=== PATIENT | female | born 1990 | race Caucasian/White ===

== ENCOUNTER 2021-03-15 11:22 | Emergency (ER) | payer OTHER, MEDICAID ==
[~2021-03-15] VITALS: Ht 167.6 cm; Wt 99.8 kg
[2021-03-15] MEDS ORDERED: HYDROCODON-ACE1 EAC7 PO (12:09)
[2021-03-15] MEDS ORDERED: MEDROLDOSEPACK PO (12:09)
[2021-03-15 12:26] VITALS: BP 125/65
== END 2021-03-15 12:27 | disposition home or self-care (01) ==
LOC: M.ERS 11:22
DX: M75.52 Bursitis of left shoulder (principal); Z98.890 Other specified postprocedural states; Z88.1 Allergy status to other antibiotic agents

== ENCOUNTER 2021-08-16 11:08 | Emergency (ER) | payer OTHER, MEDICAID ==
[~2021-08-16] VITALS: Ht 167.6 cm; Wt 99.8 kg
[~2021-08-16 11:08] MED LIST: HYDROCODON-ACE1 EAC7 PO; MEDROLDOSEPACK PO
[2021-08-16 12:09] LABS: URINE BILIRUBIN NEGATIVE (Negative); URINE BLOOD NEGATIVE (Negative); URINE CLARITY CLEAR; URINE COLOR YELLOW; URINE GLUCOSE-RANDOM NEGATIVE (Negative); URINE KETONES NEGATIVE (Negative); URINE LEUKOCYTES-REFLEX NEGATIVE (Negative); URINE NITRITE-REFLEX NEGATIVE (Negative); URINE PROTEIN NEGATIVE (Negative); URINE UROBILINOGEN 0.2 E.U./dl (0.2-1.0)
[2021-08-16] MEDS ORDERED: HYDROCODON-ACE1 EAC7 PO (13:50)
[2021-08-16 14:44] VITALS: BP 142/87
== END 2021-08-16 14:44 | disposition home or self-care (01) ==
LOC: M.ERS 11:08
PROVIDERS: Physician Assistant
DX: R10.2 Pelvic and perineal pain (principal); R11.0 Nausea; R10.84 Generalized abdominal pain; Z98.890 Other specified postprocedural states; Z96.22 Myringotomy tube(s) status; Z90.89 Acquired absence of other organs; Z79.899 Other long term (current) drug therapy; Z88.1 Allergy status to other antibiotic agents